=== PATIENT | female | born 1945 | race Caucasian/White ===

== ENCOUNTER → 2017-08-08 13:34 | Outpatient (CLI) | payer MEDICARE, OTHER, SELFPAY ==
--- NOTE | 2017-08-08 | DI.US.S_ITS ---
PROCEDURE: US ABDOMEN LIMITED INDICATIONS: RIGHT GROIN PAIN TECHNIQUE: Real-time focused scanning was performed of the abdomen, with image documentation. COMPARISON: None. FINDINGS: No right inguinal hernia or other right groin abnormality seen. IMPRESSION: No right inguinal hernia. Dictated by: Keaton MCGARRY Interpreted: Kareem Pinon MD on 08/08/2017 at 15:26 Approved by: Kareem Pinon M.D. on 08/08/2017 at 21:40
== END ==
PROVIDERS: Family Provider Family Medicine; PCP Family Medicine; Visit Provider Family Medicine
DX: R10.31 Right lower quadrant pain (principal)
CPT/HCPCS: 76705

== ENCOUNTER → 2018-08-03 16:19 | Outpatient (CLI) | payer MEDICARE, OTHER, SELFPAY ==
[2018-08-03 17:40] LABS: Appearance Urine UA CLEAR; Bilirubin Urine UA NEGATIVE (NEGATIVE); Color Urine UA YELLOW; Glucose Urine UA NEGATIVE (Negative); Ketones Urine UA NEGATIVE (NEGATIVE); Leukocyte Esterase Urine UA NEGATIVE (NEGATIVE); Nitrite Urine UA NEGATIVE (Negative); Occult Blood Urine UA 1+ (Negative); Protein Urine UA NEGATIVE (Negative); Specific Gravity Urine UA 1.025 (1.000-1.035); Urobilinogen Urine UA 0.2 E.U./dL (0.2)
[2018-08-03 17:52] LABS: Add Manual Diff / Slide Review NO; Basophils Absolute Auto 100 /uL (0-100); Basophils Percent Auto 1.3 % (0-2); Eosinophils Absolute Auto 100 /uL (0-450); Eosinophils Percent Auto 3.1 % (2-4); Hematocrit 36.4 % (36-46); Hemoglobin 12.3 g/dL (12.0-16.0); Lymphocytes Absolute Auto 600 /uL (1100-4500); Lymphocytes Percent Auto 13.6 % (25-40); Mean Corpuscular HGB Conc 33.9 % (30-36); Mean Corpuscular Hemoglobin 33.2 PG (26-34); Monocytes Absolute Auto 400 /uL (0-900); Neutrophils Absolute Auto 3400 /uL (1500-7000); Platelet Count 244 X10^3/uL (150-400); Red Blood Cell Count 3.71 X10^6/uL (4.0-5.2); Red Cell Distribution Width 13.2 % (11.6-14.8); White Blood Cell Count 4.6 X10^3/uL (4.5-11.0)
[2018-08-03 17:56] LABS: Hemoglobin A1C% w Est Avg Glu 5.2 % (4.0-6.0)
[2018-08-03 18:12] LABS: BUN Creatinine Ratio 22.9 (6-22); Blood Urea Nitrogen 16 mg/dL (7-17); Calcium 9.4 mg/dL (8.4-10.2); Carbon Dioxide 29 mmol/L (22-32); Chloride 104 mmol/L (98-107); Estimated Glomerular Filt Rate > 60.0 mL/min (>60); Glucose 92 mg/dL (80-110); HEMOLYSIS < 15 (0-50); Potassium 4.9 mmol/L (3.4-5.1); Sodium 140 mmol/L (137-145)
[2018-08-03 18:17] LABS: Amorphous Sediment Urine 1+; Bacteria Urine Few (2-10); Culture Indicated Urine Cult Not Indicated; Mucus Urine 1+ (Negative); RBC Urine 1-5/HPF (0-5/HPF); Squamous Epithelial Cell Urine 1-5 /HPF (0-5/HPF); WBC Urine 1-5/HPF (0-5/HPF)
== END ==
PROVIDERS: Family Provider Family Medicine; PCP Family Medicine; Visit Provider Orthopaedic Surgery
DX: Z01.818 Encounter for other preprocedural examination (principal); Z01.812 Encounter for preprocedural laboratory examination; N39.9 Disorder of urinary system, unspecified; Z13.1 Encounter for screening for diabetes mellitus; R73.9 Hyperglycemia, unspecified
CPT/HCPCS: 36415; 80048; 81001; 83036; 85025; 93005; 93010

== ENCOUNTER 2018-09-05 11:38 | Inpatient (IN) | payer MEDICARE, OTHER, SELFPAY ==
[2018-08-23 08:45] VITALS: BMI 25.9
[2018-09-05] VITALS (13 sets, daily range): BP systolic 105–144; BP diastolic 52–75; PULSE 51–82; RESP 12–18; TEMP 35.6–36.8; O2SAT 93–97; BMI 25.9
--- NOTE | 2018-09-05 | DI.RAD.S_ITS ---
PROCEDURE: XR HIP W PEL IF DONE RT 2V INDICATIONS: TOTAL RIGHT HIP TECHNIQUE: 2 view(s) of the hip acquired. COMPARISON: [facility], [place], XR HIP W PEL IF DONE RT 2V, 09/05/2018, 15:11. FINDINGS: Bones: Patient is status post right hip arthroplasty, with hardware components in expected positions. The hip joint appears congruent. The visualized bony structures appear intact. There has been a prior left hip arthroplasty which appears intact. Soft tissues: Overlying postoperative changes are noted. No suspicious soft tissue densities. IMPRESSION: Expected postoperative appearance of right hip arthroplasty. Intact left hip arthroplasty. Dictated by: Batsheva Villanueva M.D. on 09/05/2018 at 17:20 Approved by: Batsheva Villanueva M.D. on 09/05/2018 at 17:21
--- NOTE | 2018-09-05 07:38 | DI.RAD.S_ITS ---
PROCEDURE: XR HIP W PEL IF DONE RT 2V INDICATIONS: post op Right MORALES TECHNIQUE: AP pelvis with lateral view(s) of the right hip(s). COMPARISON: None. FINDINGS: Expected intraoperative alignment of right hip arthroplastic components. Overlying soft tissue changes. IMPRESSION: Expected intraoperative appearance Dictated by: Luís Webb M.D. on 09/05/2018 at 15:59 Approved by: Luís Webb M.D. on 09/05/2018 at 16:00
[2018-09-05] MEDS: VANCOMYCIN 1,000 MG/200 ML PIGGYBACK 200 MG IV (12:39)
[2018-09-05] MEDS: LACTATED RINGERS 1,000 ML 42 ML IV (12:39)
[2018-09-05] MEDS: PREGABALIN 75 MG CAPSULE PO (12:42)
[2018-09-05] MEDS: ACETAMINOPHEN 325 MG TABLET 975 MG PO ×2 (12:42→21:57)
[2018-09-05] MEDS: CELECOXIB 200 MG CAPSULE PO (12:42)
[2018-09-05] MEDS: CEFAZOLIN 2 GM/100 ML FROZ.PIGGY IV ×2 (13:52→22:01)
--- NOTE | 2018-09-05 13:54 | P.OP_ITS ---
Operative Date/Time/Diagnoses Date of procedure: 09/05/18 Time of procedure: 14:03 Pre-op diagnosis: Right hip osteoarthritis Post-op diagnosis: same Procedure & Clinicians Procedure: Right total hip arthroplasty Same procedure as scheduled: Yes Indications: The patient has had progressively worsening right hip pain with radiographic changes consistent with arthritis. Non-operative management has failed and the patient has requested total hip replacement. The risks, benefits and alternatives to surgery were discussed with the patient prior to proceeding. Risks discussed included, but were not limited to, failure to relieve pain, leg length discrepancy, dislocation, stiffness, infection, nerve damage, deep venous thrombosis, pulmonary embolism, stroke, coma, heart attack, permanent paralysis and , as well as the potential need for eventual revision of the prosthetic. Surgeon: Melba Lopes Electric Refrigerator Preparer: Will Baugh Anesthesia Type: General and Spinal Operative Notes Findings: Severe right hip osteoarthritis, good stability Closure Type: primary Specimen(s): none sent Prosthetic devices, grafts, tissues, transplants, or devices: Lopes and Nephew 50 R3 cup, neutral 50 x 32 liner, size 6 standard anthology stem, 32+ 0 Oxinium head Applied: drain(s) Estimated Blood Loss (mL): 250 Blood products transfused: none Procedure in detail: The patient was seen in the pre-operative area, where the patient identified the right hip as the operative site and this was marked with my initials. The patient received pre-operative antibiotics and was taken to the operating room and placed on the operative table in the left lateral decubitus position after satisfactory anesthesia. A time study statistician out was performed. The right leg was prepared from the ankle to the iliac crest with ChloroPrep in the usual fashion and draped through sterile drapes. The hip was approached through an approximately 20 cm incision centered over the greater trochanter and curving gently posteriorly as it went proximally. This was carried sharply to the fascia austin, which was divided and retracted with a self retaining retractor. The trochanteric bursa was excised with care being taken to avoid the sciatic nerve, which was identified and protected throughout the case. The short external rotators were incised and the capsulomuscular flap was raised and tagged for later repair. The hip was dislocated, and a femoral neck osteotomy performed approximately 15 mm above the lesser trochanter. Retractors were placed around the femur. The canal was opened with a box cutting osteotome, followed by a T handled reamer and a lateralizing reamer. The chili pepper broach was then used, followed by sequential broaching until there was good stability of the broach in the femur. Retractors were placed to expose the acetabulum. The labrum and central soft tissues were removed. Reaming was performed initially going up in 2 mm increments, then 1 mm increments until good bite was obtained with an odd sized reamer. The cup 1 mm larger than the last reamer was then inserted using the appropriate anteversion guides. A trial neutral liner was placed. The broach was placed in the canal. A trial head and neck were then placed and the hip relocated and checked for leg length and stability. An intraoperative film confirmed the component position and no evidence of fracture. The patient was stable in the position of sleep, of squatting, and could be put through a range of motion with 45 degrees internal rotation without dislocation. At 90 degrees flexion, internal rotation to 70 was possible before dislocation. This was felt to be satisfactory and the appropriate components were opened, and the trials were removed. The acetabular liner was impacted into position. The final stem was then impacted into the prepared femoral canal. A brief Betadine soak was performed while trialing with head options. The hip was meticulously irrigated with normal saline. Finally the femoral head was impacted onto the stem. The acetabulum was cleared of all material and the hip relocated one final time. The capsulomuscular flap was then repaired to the greater trochanter though an awl hole using the tag sutures. The short external rotators were repaired with a nonabsorbable suture. A deep drain was placed and brought out anteriorly. The fascia austin was closed with Vicryl. The subcutaneous layer was closed with barbed sutures and SteriStrips. An Aquacel Ag dressing was applied and the patient was taken to recovery having tolerated the procedure well. Complications: none Condition: stable Disposition: Acute Care Plan for aftercare: The patient will be maintained on a standard total hip replacement protocol with weight bearing as tolerated and posterior hip precautions. The patient will receive Aspirin and sequential compression devices for DVT prophylaxis. The patient will be discharged home when safe for the home environment.
[2018-09-05] MEDS: TRANEXAMIC ACID 1,000 MG VIAL 2000 MG INJ ×2 (14:20→16:02)
--- NOTE | 2018-09-05 14:42 | SUR.OPER ---
Lateral on padded OR bed. Gel axillary roll. Arms secured on padded armboard with pillow supporting top arm. Padded hip positioner braces x4 - anterior and posterior chest and pelvis. Additional gel pad used anterior pelvis. Gel pad under bottom leg from knee to foot and secured with tape over sheet.
[2018-09-05] MEDS: BUPIVACAINE LIPOSOME 266 MG/20 ML VIAL INJ (14:51)
[2018-09-05] MEDS: BUPIVACAINE 0.25% W/ EPI 30 ML VIAL 60 ML INJ (14:51)
[2018-09-05] MEDS: POVIDONE-IODINE 15 ML, SODIUM CHLORIDE 0.9% 250 ML TOP (14:54)
[2018-09-05] MEDS: SODIUM CHLORIDE IRRIG SOLUTION 250 ML, EPINEPHrine 1 MG IRR (14:55)
--- NOTE | 2018-09-05 16:09 | PM.PN.1 ---
Subjective Date Patient Seen: 09/05/18 Time Patient Seen: 13:09 Interval history: Preoperative history and physical reviewed in detail no interval change in history or physical continued ongoing significant right hip pain. Her previous left total hip arthroplasty is working well. Exam Vital Signs (past 8 hours): - 09/05/18 12:18 Temperature 97.3 F L Pulse Rate 64 Respiratory Rate 16 Blood Pressure 144/75 H Pulse Oximetry 97 Oxygen Delivery Method Room Air Narrative Exam Narrative: Physical exam performed an updated no interval change heart regular lungs are clear right hip has severe pain with range of motion. Assessment & Plan Assessment & Plan narrative: No interval change in history and physical okay to proceed with right total hip arthroplasty. Procedure reviewed with patient and anesthesia.
[2018-09-05] MEDS: ONDANSETRON 4 MG/2 ML INJ IV ×2 (18:40→22:41)
[2018-09-05] MEDS: LACTATED RINGERS 1,000 ML 125 ML IV (18:40)
[2018-09-05] MEDS: DOCUSATE 100 MG CAPSULE PO (21:57)
[2018-09-05] MEDS: ASPIRIN EC 81 MG TABLET PO (21:57)
[2018-09-05] MEDS: HYDROXYCHLOROQUINE 200 MG TABLET 100 MG PO (21:58)
[2018-09-06] VITALS (9 sets, daily range): BP systolic 102–125; BP diastolic 51–69; PULSE 51–75; RESP 16–18; TEMP 36.2–37; O2SAT 95–98
--- NOTE | 2018-09-06 00:57 | PC.NURSE ---
Addendum entered by Silvano Lugo R.N. 09/06/18 06:49: 0645: Pt states she is feeling some nausea. Medicated with Zofran 4mg IV. Current B/P 112/58. Addendum entered by Silvano Lugo R.N. 09/06/18 03:45: 0315: O2 sats 90% on room air. Placed on O2 2L/NC. Addendum entered by Silvano Lugo R.N. 09/06/18 03:21: 0300: Fluid bolus of 500cc NS started. Pt states she is feeling warmer. Current temperature is 97.5 (temporal). Addendum entered by Silvano Lugo R.N. 09/06/18 03:21: Addendum entered by Silvano Lugo R.N. 09/06/18 02:36: 0210: Call to Dr. White : notified of pts mental status, vital signs, and low temperature. New orders are to give NS fluid bolus of 500cc IV. Addendum entered by Silvano Lugo R.N. 09/06/18 01:18: 0107: Call to Dr. Jenkins regarding pts vital signs: inability to get temperature, HR of 51, B/P 102/52, and her history of having cardiac arrythmias after her 2007 surgery per H&P. New orders are to place pt on telemetry, use Pranay Hugger, and monitor vital signs Q2hrs. Original Note: Gum Machine Filler Note: 0045: Resting in bed, eyes closed. Opens eyes to sound. Alert and oriented X3. Pt states she feels cold. Warm blankets applied. She states her nausea is much better. HOB elevated 30 degrees per her comfort. IV in place in rt hand, with LR infusing at 125cc/hr. SCDs on. Dressing to rt hip cdi, with hemovac intact and compressed.
[2018-09-06] MEDS: SODIUM CHLORIDE 0.9% 500 ML 1000 ML IV (03:00)
[2018-09-06] MEDS: LACTATED RINGERS 1,000 ML 125 ML IV (03:17)
[2018-09-06 05:56] LABS: Hematocrit 29.7 % (36-46); Hemoglobin 10.1 g/dL (12.0-16.0)
[2018-09-06] MEDS: CEFAZOLIN 2 GM/100 ML FROZ.PIGGY IV (06:34)
[2018-09-06] MEDS: ONDANSETRON 4 MG/2 ML INJ IV (06:43)
[2018-09-06] MEDS: MELOXICAM 7.5 MG TABLET 15 MG PO (08:58)
[2018-09-06] MEDS: DOCUSATE 100 MG CAPSULE PO ×2 (08:58→20:27)
[2018-09-06] MEDS: LEVOTHYROXINE 50 MCG TABLET PO (08:58)
[2018-09-06] MEDS: ASPIRIN EC 81 MG TABLET PO ×2 (08:58→20:27)
[2018-09-06] MEDS: ACETAMINOPHEN 325 MG TABLET 975 MG PO ×3 (08:58→20:27)
[2018-09-06] MEDS: HYDROXYCHLOROQUINE 200 MG TABLET PO (08:59)
--- NOTE | 2018-09-06 09:37 | P.PN_ITS ---
Subjective Date Patient Seen: 09/06/18 Time Patient Seen: 09:35 Interval history: 73 year old female who is POD#1 s/p right total hip arthroplasty with Dr. Lopes. She experience some hypotension and bradycardia overnight accompanied by mental status change and lightheadedness. She was given a NS bolus and placed on telemetry with improvement of her vitals this morning and resolution of symptoms. She ambulated to commode prior to vital changes and has not ambulated again since. Pain is well controlled. She is tolerating food and has voided. Denies chest pain, shortness of breath. Exam Vital Signs (past 8 hours): - 09/06/18 02:00 09/06/18 04:54 09/06/18 06:00 Temperature 97.5 F L 98.6 F 97.4 F L Pulse Rate 52 L 66 61 Respiratory Rate 18 18 18 Blood Pressure 109/55 L 115/51 L 112/58 L Pulse Oximetry 95 96 97 09/06/18 08:30 Temperature 98.5 F Pulse Rate 66 Respiratory Rate 16 Blood Pressure 111/64 Pulse Oximetry 97 Oxygen Delivery Method Room Air Oxygen Flow Rate 1 Narrative Exam Narrative: Pleasant 73 year old female resting comfortably in bed, in no acute distress. Alert and oriented. Dressing in place over right hip is clean, dry, and intact. Active flexi on/extension of the ankle. Sensation intact to light touch. Palpable pedal pulse. Calves soft, compressible. Objective Labs Result Diagrams: 09/06/18 05:03 Labs: Laboratory Results - last 24 hr 09/06/18 05:03 Hgb 10.1 L Hct 29.7 L Assessment & Plan Post-op Postoperative Procedures Operation Date: 09/05/18 13:45 Actual Procedures Side Surgeon p Total Hip Arthroplasty Posterior Right Melba A MD Moses Patient appears to have stabilized after NDS bolus. Will continue to monitor today. Drain removed today. She should attempt physical therapy and continue pain control. Possible discharge this afternoon if she remains stable and is cleared by PT, otherwise will discharge to home tomorrow. Quality VTE Deep Vein Thrombosis/Pulmonary Embolism Present on Admission: No
--- NOTE | 2018-09-06 10:20 | CM.DANOTE ---
DCP: Case received, EMR reviewed and met with patient. Introduced self and role. Was able to obtain baseline health information from patient. DCP template assessment completed with information currently available. Patient is a 73 year old female who admitted yesterday morning to the care of the orthopedic team. PCP: Dr. Jiménez. Payer: confirmed: [email or web address]. Patient came to hospital for surgical procedure. She had R. total hip arthroplasty. Patient has had history of chronic right hip pain. Met with patient in her room. Pleasant. Alert and oriented. She resides in [place] with her spouse, Benito. She is active, works in her yard. She does have a walker. She has outpatient physical therapy set up at [facility]. She stated, she had some blood pressure issues early this morning when she used the bedside commode, her blood pressure had gotten low. She stated, today, she's feeling better. She will still be working with physical therapy team. P: DCP to continue to follow. She will be working with physical therapy, and will note how her blood pressures are doing. She should be able to go home when she is medically stable. Maria Guadalupe Ochoa RN/Project Manager Industrial
--- NOTE | 2018-09-06 10:40 | PT.IIE ---
Current Diagnoses Unilateral primary osteoarthritis, right hip (09/05/18) Surgery Performed Operation Date: 09/05/18 13:45 Actual Procedures p Total Hip Arthroplasty Posterior(Right) - Melba Lopes MD Surgical History (Last Updated 08/23/18 @ 09:12 by Janae Garcia, RN) History of total left hip arthroplasty (Acute 08/25/14) Hx of appendectomy (Acute) Hx of bilateral cataract extraction (Acute ~2016) Hx of hemorrhoidectomy (Acute) Status post colostomy takedown (Acute ~2007) Medical History (Last Updated 08/23/18 @ 09:12 by Janae Garcia, TOR) Arthritis (Acute) H/O: hysterectomy (Acute ~1973) HTN (hypertension) (Acute) Hypothyroidism (Acute) Osteoarthritis (Acute) Palpitations (Acute) Wide-complex tachycardia (Acute) Physical Therapy Inpatient Evaluation/Re-Eval M1 PT/OT-IP Prior Functional Status Start: 09/06/18 12:50 Freq: NEEDED Status: Active Protocol: Document 09/06/18 10:40 AB (Rec: 09/06/18 13:09 [id number]) Medical Review Prior Functional Status Medical History Reviewed Yes Communication able to make needs known Mobility and Gait pt stated that she was independent with all mobilities and ambulation without AD but has been using a FWW for ambulation for the last 3 weeks due to R hip pain Social History Household Members spouse Living Arrangements House Number of Floors (Floors) One Floor Number of Stairs To Enter/Railing? 2 steps to enter with 2 handles on door frame Home Environment High Toilet Walk in Shower Home Equipment Front Wheel Walker Straight Cane Raised Toilet Seat Without Armrests Shower Seat with Backrest Hand Held Shower Long Handled Shoe Horn Tank Pumper Panelboard Sock Aid Grab Bars In Shower Employment Status Retired M2 PT-IP Current Condition Start: 09/06/18 12:50 Freq: NEEDED Status: Active Protocol: Document 09/06/18 10:40 AB (Rec: 09/06/18 13:09 AB [id number]) Physical Therapy Current Condition Current Condition Evaluation Date 09/06/18 Treatment Diagnosis s/p R MORALES posterior approach; difficulty in walking Onset Date 09/05/18 Precautions Posterior Hip Precautions No Hip Flexion > 90 degrees No Hip Internal Rotation No Hip Adduction Weight Bearing Status Weight Bearing Status Weight Bear as Tolerated M3 PT-IP Subjective Start: 09/06/18 12:50 Freq: NEEDED Status: Active Protocol: Document 09/06/18 10:40 AB (Rec: 09/06/18 13:09 AB [id number]) Subjective Physical Therapy Visit Type Type Initial Evaluation Visit Start Time 10:40 Visit Stop Time 11:26 Total Visit Minutes 46 Number of IP ATTORNEY Visits 0 Physical Therapy Visit Comments Patient Comments pt agreeable to do PT Therapy Pain Assessment Pain When Pain Assessed At Rest Location r hip Intensity 3 Scale Used increases with mobility Pain Management Techniques Apply Cold Re-positioning Timing of Activity with Medications M4 PT-IP Mobility and Gait Start: 09/06/18 12:50 Freq: NEEDED Status: Active Protocol: Document 09/06/18 10:40 AB (Rec: 09/06/18 13:09 AB [id number]) PT-Bed Mobility Assessment Supine to Sit Supine to Sit Standby Assistance Scooting Scooting to Edge of Bed Standby Assistance PT-Transfer Assessment Sit to and From Stand Sit to and from Stand Minimal Assistance 1 Person Assistance Use of Upper Extremities Equipment Transfer Assistive Device Gait Belt Front Wheeled Walker Orthotic/Prosthetic Devices or Brace: No Transfers Transfer Destination Bed Transfer Technique pt ambulated using FWW Transfer Ability Level of Assist Minimal Assistance 1 Person Assistance Use of Upper Extremities Comments Mobility Comments RLE tends to interanally rotate at rest. has to educated and cue pt to correct RLE position to maintain hip precautions BP supine: 123/57 pt c/o slight dizziness upon sitting but dissipated after sitting on EOB for a few minutes. BP sittin/61 pt completed sit to stand min A and cues. BP checked in standin/65 BP at end of tx session sitting on chair: 112/56 Gait Assessment Gait Gait Assistance Required: Minimum Assistance Distance (Feet) 40 Able to Maintain Weight Bearing Status Yes During Gait Assistive Devices Assistive Device Gait Belt Front Wheeled Walker Orthotic/Prosthetic Devices or Brace: No Gait Deviations General Gait Pattern Antalgic Decreased Stride Length Decreased Feet Clearance Factors Limiting Gait Function Factors Limiting Gait Function Decreased Activity Tolerance Decreased Strength Limited Range of Motion Pain Poor Balance PT-Balance Assessment Sitting Balance and Reactions Static Sitting Balance Ability Good Dynamic Sitting Balance Ability Good Standing Balance and Reactions Static Standing Balance Ability Fair Dynamic Standing Balance Ability Fair Device Used FWW M5 PT-IP Objective Assessments Start: 09/06/18 12:50 Freq: NEEDED Status: Active Protocol: Document 09/06/18 10:40 AB (Rec: 09/06/18 13:09 AB [id number]) Orientation Orientation/Cognition Level of Alertness Alert Orientation Name Age Birthday Month Date Year Day of Week Place Situation Language Function Ability No Deficits Noted Safety Awareness Decreased Safety Awareness Memory Description Short Term Impaired Gross Range of Motion Lower Extremity ROM Assessment Within Functional Limits Strength Lower Extremity Strength Assessment Right Impaired Hip 3+/5 Knee 3+/5 Coordination Assessment Gross Coordination Gross Coordination WNL Sensation Assessment Sensation Gross Sensation WNL Muscle Tone Muscle Tone WNL Yes Other Assessments Other Other Assessments pt with (+) R genu valgum, (+) head tremors during standing and ambulation M6 PT-IP Treatment Start: 09/06/18 12:50 Freq: NEEDED Status: Active Protocol: Document 09/06/18 10:40 AB (Rec: 09/06/18 13:09 AB [id number]) Physical Therapy Treatment Exercises Exercises Quad Sets Heel Slides Education Education Provided Precautions Weight Bearing Status Post-Op Packet Safety M7 PT-IP Assessment and Plan Start: 09/06/18 12:50 Freq: NEEDED Status: Active Protocol: Document 09/06/18 10:40 AB (Rec: 09/06/18 13:09 AB [id number]) PT Summary Assessment and Plan Potential Rehabilitation Potential Good Status of Condition at Evaluation Stable Summary Impairments Pain ROM Strength Balance Coordination Bed Mobility Transfers Gait Activity Tolerance Assessment Summary pt requiring min A with mobility and plans to go home with spouse to assist her. caregiver training and stair training will be conducted prior to d/c and if able to safety complete, pt may go home when medically stable. Goals Bed Mobility Goal Independent Transfer Goal Independent Front Wheeled Walker Gait Goal Independent Front Wheel Walker Gait Distance 200 Other Goals up/down 2 steps using 2 handles/ SPC/INTELLIGENCE ENGINEER. Days to Meet Goals 5 Frequency of Treatment Frequency Of Treatment Twice a Day Treatment Plan Physical Therapy Treatment Plan Bed Mobility Training Transfer Training Gait Training Therapeutic Exercise Balance Retraining Post Op Education Discharge Planning Hot or Cold Pack Neuromuscular Re-ed Coordination Retraining Manual Therapy Other Recommendations and Next Treatment ambulation, caregiver training Focus , stair training Recommendations To Nursing Amount of Assist Needed 1 Person Assist Discharge Recommendations PT Discharge Recommendations Home with Assistance Outpatient PT
[2018-09-06] MEDS: ESTROGENS, CONJUGATED 0.3 MG TABLET PO (14:43)
--- NOTE | 2018-09-06 15:00 | PT.IPTN ---
Current Diagnoses Unilateral primary osteoarthritis, right hip (09/05/18) Surgery Performed Operation Date: 09/05/18 13:45 Actual Procedures p Total Hip Arthroplasty Posterior(Right) - Melba Lopes MD Physical Therapy Treatment Note M2 PT-IP Current Condition Start: 09/06/18 12:50 Freq: NEEDED Status: Active Protocol: Document 09/06/18 10:40 AB (Rec: 09/06/18 13:09 AB [id number]) Physical Therapy Current Condition Current Condition Evaluation Date 09/06/18 Treatment Diagnosis s/p R MORALES posterior approach; difficulty in walking Onset Date 09/05/18 Precautions Posterior Hip Precautions No Hip Flexion > 90 degrees No Hip Internal Rotation No Hip Adduction Weight Bearing Status Weight Bearing Status Weight Bear as Tolerated M3 PT-IP Subjective Start: 09/06/18 12:50 Freq: NEEDED Status: Active Protocol: Document 09/06/18 15:00 AB (Rec: 09/06/18 17:36 AB [id number]) Subjective Physical Therapy Visit Type Type Treatment Note Visit Start Time 15:00 Visit Stop Time 15:41 Total Visit Minutes 41 Number of NURSING CLINICAL DIRECTOR Visits 0 Physical Therapy Visit Comments Patient Comments pt agreeable to do PT Therapy Pain Assessment Pain When Pain Assessed At Rest Pain Present Pain Present Pain Reported Location r hip Intensity 5 Scale Used Numeric (1 - 10) Pain Management Techniques Apply Cold Re-positioning Timing of Activity with Medications M4 PT-IP Mobility and Gait Start: 09/06/18 12:50 Freq: NEEDED Status: Active Protocol: Document 09/06/18 15:00 AB (Rec: 09/06/18 17:36 AB [id number]) PT-Bed Mobility Assessment Supine to Sit Supine to Sit Standby Assistance Sit to Supine Sit to Supine Standby Assistance Scooting Scooting to Edge of Bed Standby Assistance PT-Transfer Assessment Sit to and From Stand Sit to and from Stand Contact Guard Assistance Equipment Transfer Assistive Device Gait Belt Front Wheeled Walker Orthotic/Prosthetic Devices or Brace: No Gait Assessment Gait Gait Assistance Required: Contact Guard Assist Distance (Feet) 100 Able to Maintain Weight Bearing Status Yes During Gait Assistive Devices Assistive Device Gait Belt Front Wheeled Walker Orthotic/Prosthetic Devices or Brace: No Gait Deviations General Gait Pattern Antalgic Decreased Stride Length Decreased Feet Clearance Factors Limiting Gait Function Factors Limiting Gait Function Decreased Activity Tolerance Decreased Strength Limited Range of Motion Pain Poor Balance Comments Gait Comments pt completed ambulation using FWW 100 + 75 ft Stair Climbing Assessment Evaluation Level of Assist On Stairs Contact Guard Assistance 1 Person Assistance Devices Stair Climbing Assistive Devices Left Railing Right Railing Technique/Endurance Stair Climbing Direction Ascend and Descend Stair Climbing Technique Step to Step Number of Steps Climbed 3 Stair Climbing Set # Repetitions (reps) 2 Comments Stair Climbing Comments attempted to simulate handle bars on pt's stair with pt reaching farther forward on stair rails on training steps. M5 PT-IP Objective Assessments Start: 09/06/18 12:50 Freq: NEEDED Status: Active Protocol: Document 09/06/18 10:40 AB (Rec: 09/06/18 13:09 AB [id number]) Orientation Orientation/Cognition Level of Alertness Alert Orientation Name Age Birthday Month Date Year Day of Week Place Situation Language Function Ability No Deficits Noted Safety Awareness Decreased Safety Awareness Memory Description Short Term Impaired Gross Range of Motion Lower Extremity ROM Assessment Within Functional Limits Strength Lower Extremity Strength Assessment Right Impaired Hip 3+/5 Knee 3+/5 Coordination Assessment Gross Coordination Gross Coordination WNL Sensation Assessment Sensation Gross Sensation WNL Muscle Tone Muscle Tone WNL Yes Other Assessments Other Other Assessments pt with (+) R genu valgum, (+) head tremors during standing and ambulation M6 PT-IP Treatment Start: 09/06/18 12:50 Freq: NEEDED Status: Active Protocol: Document 09/06/18 15:00 AB (Rec: 09/06/18 17:36 AB [id number]) Physical Therapy Treatment Education Education Provided Precautions Safety M7 PT-IP Assessment and Plan Start: 09/06/18 12:50 Freq: NEEDED Status: Active Protocol: Document 09/06/18 15:00 AB (Rec: 09/06/18 17:36 AB [id number]) PT Summary Assessment and Plan Potential Rehabilitation Potential Good Summary Impairments Pain ROM Strength Balance Coordination Sensation Tone Cognition Bed Mobility Transfers Gait Activity Tolerance Progress Towards Goals Slow Progress due to Activity Tolerance Assessment Summary pt progressing with mobility and requiring CGA with ambulation but requires cues for techniques and for hip precautions. pt plans to go home with spouse to assist her . Goals Bed Mobility Goal Independent Transfer Goal Independent Front Wheeled Walker Gait Goal Independent Front Wheel Walker Gait Distance 200 Other Goals up/down 2 steps using 2 handles/ SPC/KITCHEN AIDE. Days to Meet Goals 5 Frequency of Treatment Frequency Of Treatment Twice a Day Treatment Plan Physical Therapy Treatment Plan Bed Mobility Training Transfer Training Gait Training Therapeutic Exercise Balance Retraining Post Op Education Discharge Planning Hot or Cold Pack Neuromuscular Re-ed Coordination Retraining Manual Therapy Other Recommendations and Next Treatment ambulation, caregiver training Focus , stair training Recommendations To Nursing Amount of Assist Needed 1 Person Assist Discharge Recommendations PT Discharge Recommendations Home with Assistance Outpatient PT
[2018-09-06] MEDS: HYDROXYCHLOROQUINE 200 MG TABLET 100 MG PO (20:27)
[2018-09-07 00:20] VITALS: BP 119/65; PULSE 70; RESP 18; TEMP 36.7; O2SAT 96
--- NOTE | 2018-09-07 00:40 | PC.NURSE ---
Addendum entered by Diandra Cano R.N. 09/07/18 05:17: Complains of 5/10 pain lateral right thigh down to below knee as well as milder pain in right hip; medicated with Oxycodone and ice applied to both hip and knee. Original Note: Patient is alert and oriented. Breath sounds CTA with RA sat of 96%. HRR and was SR on most recent telemetry reading. Denies nausea. BT present and is passing flatus. Denies dysuria, frequency or urgency and is assisted to bathroom with 1 assist + walker; able to turn self in bed. Dressing to right hip and hemovac insertion site (drain out) both CDI. Does complain of 2/10 pain in hip and lateral right thigh but declines pain medication; ice pack applied. CMS is intact. SCD's applied at shift change. Fall risk score is moderate; calls for assistance appropriately.
[2018-09-07 02:56] VITALS: BP 128/64; PULSE 64; RESP 16; TEMP 36.6; O2SAT 97
[2018-09-07] MEDS: OXYCODONE IR 5 MG TABLET PO (05:12)
[2018-09-07 08:05] VITALS: BP 142/66; PULSE 62; RESP 18; TEMP 36.5; O2SAT 95
--- NOTE | 2018-09-07 08:11 | P.DS_ITS ---
History of Present Illness Date Patient Seen: 09/07/18 Time Patient Seen: 08:11 Chief complaint: [id number] RIGHT MORALES Narrative: The patient has had progressively worsening right hip pain with ra diographic changes consistent with arthritis. Non-operative management has failed and the patient has requested total hip replacement. The risks, benefits and alternatives to surgery were discussed with the patient prior to proceeding. Risks discussed included, but were not limited to, failure to relieve pain, leg length discrepancy, dislocation, stiffness, infection, nerve damage, deep venous thrombosis, pulmonary embolism, stroke, coma, heart attack, permanent paralysis and , as well as the potential need for eventual revision of the prosthetic. Discharge Providers Date of admission: 09/05/18 11:38 Discharge Date: 09/07/18 Primary care physician: Tone Jiménez MD Consults: 09/05/18 07:38 Consult to Anesthesiology Routine Comment: Consulting Provider: Anesthesiologist Reason for consultation: Regional block for post operative pain control 09/05/18 17:16 Consult to Discharge Planning Routine Comment: Consult to Physical Therapy Evaluate & Treat Comment: Physician Instructions: post op MORALES protocol Consult to Respiratory Therapy Evaluate & Treat Comment: Physician Instructions: Evaluate and treat Discharge provider: Luba Garcia PA-C Summary Discharge Diagnosis: s/p right total hip arthroplasty Thyroid disease Osteoporosis Hospital Course: Jose ibanez was admitted for right total hip arthroplasty with Dr. Lopes. Hospital course was remarkable for hypotensive episodes, nausea, and dizziness. H&H was 10.1/29.7, and did have post-operative blood loss anemia. Postop day 2. She was ready to discharge home. She has worked with physical therapy throughout her stay. She is eating and voiding without difficulty or assistance. ASA and SCDs for DVT prophylaxis. Status at Discharge Functional status at discharge: uses cane/walker Exam Vital Signs (past 8 hours): - 09/07/18 00:20 09/07/18 02:56 Temperature 98.1 F 97.8 F Pulse Rate 70 64 Respiratory Rate 18 16 Blood Pressure 119/65 128/64 Pulse Oximetry 96 97 Oxygen Delivery Method Room Air Oxygen Flow Rate 0 Narrative Exam Narrative: Patient is sitting at bedside chair no acute distress. She is alert and oriented x3. Calves are soft, compressible, nontender bilaterally. Sensation intact to light touch throughout extremities. Pain well controlled last night. BP issues resolved overnight. Objective Labs Result Diagrams: 09/06/18 05:03 Discharge Plan Discharge Plan Patient Disposition: Home Discharge Med Rec/Prescriptions Prescriptions: New acetaminophen 325 mg Tablet 975 mg PO TID Qty: 60 RF: 0 aspirin 81 mg Tablet,Delayed Release (Dr/Ec) 81 mg PO BID Qty: 60 RF: 0 meloxicam [Mobic] 7.5 mg Tablet 15 mg PO 0800 Qty: 1 RF: 0 docusate sodium [DOK] 100 mg Capsule 100 mg PO BID Qty: 60 RF: 0 oxycodone 5 mg Tablet 5 mg PO Q3HR PRN (Reason: Pain, Moderate (4-6)) Qty: 1 RF: 0 Continued hydroxychloroquine [Plaquenil] 200 MG tablet 300 mg PO SEEINSTR Qty: 0 RF: 0 amlodipine 5 mg Tablet 5 mg PO DAILY RF: 0 acetaminophen [Tylenol Extra Strength] 500 mg Tablet 500 mg PO Q6H PRN (Reason: Pain) RF: 0 levothyroxine 50 mcg Tablet 50 mcg PO DAILY RF: 0 Premarin 0.3 mg Tablet 0.3 mg PO DAILY RF: 0 Follow up/Referrals: Melba Lopes MD [Physician] - Provider Discharge Instructions Diet: Diet as Tolerated Activity: Weight bear as tolerated. Posterior hip precautions. Cold/Heat Therapy: Ice packs as needed. Skin/Wound/Dressing Care Report to your healthcare provider any signs of infection, such as:: chills, fever, night sweats, unusual drainage and unusual redness Dressing: Please leave dressing in place. Will be removed at 2 week post operative visit. Call the office if dressing becomes saturated. Visit Report/Discharge Packet Instructions: DI for Hip Replacement Discharge Data Primary Care Provider: Tone Jiménez Attending Provider: Melba Lopes Admit Date/Time: 09/05/18 11:38 Quality VTE Deep Vein Thrombosis/Pulmonary Embolism Present on Admission: No
[2018-09-07] MEDS: MELOXICAM 7.5 MG TABLET 15 MG PO (09:35)
[2018-09-07] MEDS: DOCUSATE 100 MG CAPSULE PO (09:35)
[2018-09-07] MEDS: LEVOTHYROXINE 50 MCG TABLET PO (09:35)
[2018-09-07] MEDS: HYDROXYCHLOROQUINE 200 MG TABLET PO (09:36)
[2018-09-07] MEDS: ESTROGENS, CONJUGATED 0.3 MG TABLET PO (09:36)
[2018-09-07] MEDS: ASPIRIN EC 81 MG TABLET PO (09:36)
[2018-09-07] MEDS: ACETAMINOPHEN 325 MG TABLET 975 MG PO (09:36)
[2018-09-07] MEDS: AMLODIPINE 5 MG TABLET PO (09:36)
--- NOTE | 2018-09-07 10:23 | CM.DPC ---
DCP: continued: Case received and discussed in Team Rounds. Pt has been ok'd to d/c home today by Amanda Shane. Has help from supportive spouse and OUTPT therapy set up. Will follow prn until pt leaves. She will likely have a therapy session today before home.
--- NOTE | 2018-09-07 10:25 | PT.IPTN ---
Current Diagnoses Unilateral primary osteoarthritis, right hip (09/05/18) Surgery Performed Operation Date: 09/05/18 13:45 Actual Procedures p Total Hip Arthroplasty Posterior(Right) - Melba Lopes MD Physical Therapy Treatment Note M2 PT-IP Current Condition Start: 09/06/18 12:50 Freq: NEEDED Status: Discharge Protocol: Document 09/06/18 10:40 AB (Rec: 09/06/18 13:09 AB [id number]) Physical Therapy Current Condition Current Condition Evaluation Date 09/06/18 Treatment Diagnosis s/p R MORALES posterior approach; difficulty in walking Onset Date 09/05/18 Precautions Posterior Hip Precautions No Hip Flexion > 90 degrees No Hip Internal Rotation No Hip Adduction Weight Bearing Status Weight Bearing Status Weight Bear as Tolerated M3 PT-IP Subjective Start: 09/06/18 12:50 Freq: NEEDED Status: Discharge Protocol: Document 09/07/18 10:25 GGD (Rec: 09/07/18 11:38 GGD [id number]) Subjective Physical Therapy Visit Type Type Treatment Note Visit Start Time 09:55 Visit Stop Time 10:25 Total Visit Minutes 30 Physical Therapy Visit Comments Patient Comments Pt want's to D/C home. Therapy Pain Assessment Pain When Pain Assessed At Rest Pain Present Pain Present Pain Reported Location Right Leg Intensity 3 Scale Used Numeric (1 - 10) M4 PT-IP Mobility and Gait Start: 09/06/18 12:50 Freq: NEEDED Status: Discharge Protocol: Document 09/07/18 10:25 GGD (Rec: 09/07/18 11:38 GGD [id number]) PT-Transfer Assessment Sit to and From Stand Sit to and from Stand Contact Guard Assistance Equipment Transfer Assistive Device Gait Belt Front Wheeled Walker Orthotic/Prosthetic Devices or Brace: No Transfers Transfer Destination Chair Transfer Ability Level of Assist Contact Guard Assistance 1 Person Assistance Use of Upper Extremities Gait Assessment Gait Gait Assistance Required: Contact Guard Assist Distance (Feet) 100 Able to Maintain Weight Bearing Status Yes During Gait Assistive Devices Assistive Device Gait Belt Front Wheeled Walker Orthotic/Prosthetic Devices or Brace: No Gait Deviations General Gait Pattern Antalgic Decreased Stride Length Decreased Feet Clearance Factors Limiting Gait Function Factors Limiting Gait Function Decreased Activity Tolerance Decreased Strength Limited Range of Motion Pain Poor Balance Stair Climbing Assessment Evaluation Level of Assist On Stairs Contact Guard Assistance 1 Person Assistance Devices Stair Climbing Assistive Devices Left Railing Right Railing Technique/Endurance Stair Climbing Direction Ascend and Descend Stair Climbing Technique Step to Step Number of Steps Climbed 3 Stair Climbing Set # Repetitions (reps) 1 M5 PT-IP Objective Assessments Start: 09/06/18 12:50 Freq: NEEDED Status: Discharge Protocol: Document 09/06/18 10:40 AB (Rec: 09/06/18 13:09 AB [id number]) Orientation Orientation/Cognition Level of Alertness Alert Orientation Name Age Birthday Month Date Year Day of Week Place Situation Language Function Ability No Deficits Noted Safety Awareness Decreased Safety Awareness Memory Description Short Term Impaired Gross Range of Motion Lower Extremity ROM Assessment Within Functional Limits Strength Lower Extremity Strength Assessment Right Impaired Hip 3+/5 Knee 3+/5 Coordination Assessment Gross Coordination Gross Coordination WNL Sensation Assessment Sensation Gross Sensation WNL Muscle Tone Muscle Tone WNL Yes Other Assessments Other Other Assessments pt with (+) R genu valgum, (+) head tremors during standing and ambulation M6 PT-IP Treatment Start: 09/06/18 12:50 Freq: NEEDED Status: Discharge Protocol: Document 09/07/18 10:25 GGD (Rec: 09/07/18 11:38 GGD [id number]) Physical Therapy Treatment Exercises Exercises Ankle Pumps Gluteal Sets Quad Sets Heel Slides Education Education Provided Precautions Safety M7 PT-IP Assessment and Plan Start: 09/06/18 12:50 Freq: NEEDED Status: Discharge Protocol: Document 09/07/18 10:25 GGD (Rec: 09/07/18 11:38 GGD [id number]) PT Summary Assessment and Plan Summary Assessment Summary Pt improving with mobility. She was safe and stable with stairs and gait. She had good understanding of hip precutions. Pt safe for home D /C when medically stable. Frequency of Treatment Frequency Of Treatment Twice a Day Treatment Plan Physical Therapy Treatment Plan Bed Mobility Training Transfer Training Gait Training Therapeutic Exercise Balance Retraining Post Op Education Discharge Planning Hot or Cold Pack Neuromuscular Re-ed Coordination Retraining Manual Therapy Discharge Recommendations PT Discharge Recommendations Home with Assistance Outpatient PT
--- NOTE | 2018-09-07 10:51 | PC.NURSE ---
DISCHARGE: PATIENT CLEARED FOR DC HOME BY PHYSICAL THERAPY. PATIENT GIVES VERBAL UNDERSTANDING OF ALL DC HOME PAPERWORK. HAS SCRIPTS FILLED ALREADY AT HOME. NOHELIA CDI. SPOUSE PRESENT FOR DC PAPERWORK. IV DC'D INTACT. PATIENT LEFT WITH ALL BELONGINGS IN NO S/SX'S OF DISTRESS W/ CCTV TECHNICIAN ESCORT BY WC.
== END 2018-09-07 10:53 | disposition home or self-care (01) | DRG 470 ==
PROVIDERS: Admitting Provider Orthopaedic Surgery; PCP Family Medicine; Visit Provider Orthopaedic Surgery
PROC: 0SR90JZ Replacement of Right Hip Joint with Synthetic Substitute, Open Approach (ICD-10-PCS; CPT 27130; principal; 2018-09-05 13:45)
DX: M16.11 Unilateral primary osteoarthritis, right hip (principal); M06.9 Rheumatoid arthritis, unspecified; Z96.642 Presence of left artificial hip joint; E03.9 Hypothyroidism, unspecified; I95.9 Hypotension, unspecified; R42 Dizziness and giddiness; R11.0 Nausea
CPT/HCPCS: 36415; 73502; 85014; 85018; 97116; 97161; 97530; C1776; C9290; J0171; J0690; J1100; J2250; J2274; J2405; J3010

== ENCOUNTER → 2018-10-22 13:06 | Outpatient (CLI) | payer MEDICARE, OTHER, SELFPAY ==
[2018-09-05 12:05] VITALS: BMI 25.9
--- NOTE | 2018-10-22 | DI.MG.S_ITS ---
BILATERAL DIGITAL SCREENING MAMMOGRAM 3D/2D WITH CAD: 10/22/2018 CLINICAL: Routine screening. Comparison is made to exams dated: 10/03/2013 mammogram, 09/28/2012 mammogram, 09/26/2011 mammogram, and 09/23/2010 mammogram - [facility]. There are scattered fibroglandular elements in both breasts. Current study was also evaluated with a Computer Aided Detection (CAD) system. No significant masses, calcifications, or other findings are seen in either breast. There has been no significant interval change. IMPRESSION: NEGATIVE There is no mammographic evidence of malignancy. A 1 year screening mammogram is recommended. This exam was interpreted at Station ID: [id number]. NOTE: For mammograms, a report in lay terms will be sent to the patient. Approximately 15% of breast malignancies will not be visualized mammographically. In the management of a palpable breast mass, a negative mammogram must not discourage biopsy of a clinically suspicious lesion. Electronically Signed By: Sarath brown/tahir:10/22/2018 18:46:01 letter sent: Normal Exam ACR BI-RADS Category 1: Negative [id number]
== END ==
PROVIDERS: PCP Student in an Organized Health Care Education/Training Program; Visit Provider Student in an Organized Health Care Education/Training Program
DX: Z12.31 Encounter for screening mammogram for malignant neoplasm of breast (principal); M85.88 Other specified disorders of bone density and structure, other site; M85.832 Other specified disorders of bone density and structure, left forearm; Z78.0 Asymptomatic menopausal state; M06.9 Rheumatoid arthritis, unspecified; Z90.722 Acquired absence of ovaries, bilateral
CPT/HCPCS: 77063; 77067; 77080

== ENCOUNTER → 2020-12-25 14:56 | Outpatient (CLI) | payer MEDICARE, OTHER, SELFPAY ==
[2018-09-05 12:05] VITALS: BMI 25.9
--- NOTE | 2020-12-25 | DI.MG.S_ITS ---
BILATERAL DIGITAL SCREENING MAMMOGRAM 3D/2D WITH CAD: 12/25/2020 CLINICAL: Routine screening. Comparison is made to exams dated: 10/22/2018 mammogram, 10/03/2013 mammogram, and 09/28/2012 mammogram - [facility]. There are scattered fibroglandular elements in both breasts. Current study was also evaluated with a Computer Aided Detection (CAD) system. No significant masses, calcifications, or other findings are seen in either breast. There has been no significant interval change. IMPRESSION: NEGATIVE There is no mammographic evidence of malignancy. A 1 year screening mammogram is recommended. This exam was interpreted at Station ID: [id number]. NOTE: For mammograms, a report in lay terms will be sent to the patient. Approximately 15% of breast malignancies will not be visualized mammographically. In the management of a palpable breast mass, a negative mammogram must not discourage biopsy of a clinically suspicious lesion. Electronically Signed By: Juan Ac M.D., jr/tahir:12/25/2020 16:18:39 letter sent: Normal Exam ACR BI-RADS Category 1: Negative [id number]
== END ==
PROVIDERS: PCP Student in an Organized Health Care Education/Training Program; Referring Provider Student in an Organized Health Care Education/Training Program; Visit Provider Student in an Organized Health Care Education/Training Program
DX: Z12.31 Encounter for screening mammogram for malignant neoplasm of breast (principal)
CPT/HCPCS: 77063; 77067

== ENCOUNTER → 2021-12-29 10:34 | Outpatient (CLI) | payer MEDICARE, OTHER, SELFPAY ==
[2018-09-05 12:05] VITALS: BMI 25.9
--- NOTE | 2021-12-29 | DI.RAD.S_ITS ---
PROCEDURE: XR DEXA AXIAL SKELETON INDICATIONS: Other specified disorders of bone density COMPARISON: [facility], [place], XR DEXA AXIAL SKELETON, 10/22/2018, 13:37. FINDINGS: This blank DEXA report has been sent in error by the PACS system. The correct and complete report will be forthcoming in 1-2 days. Thank you for your patience and understanding. Dictated by: Juan Ac M.D. on 12/29/2021 at 15:01 Approved by: Juan Ac M.D. on 12/29/2021 at 15:01
== END ==
PROVIDERS: PCP Family Medicine; Referring Provider Family Medicine; Visit Provider Family Medicine
DX: Z13.820 Encounter for screening for osteoporosis; M81.0 Age-related osteoporosis without current pathological fracture; Z78.0 Asymptomatic menopausal state; Z79.890 Hormone replacement therapy; Z90.710 Acquired absence of both cervix and uterus; Z79.83 Long term (current) use of bisphosphonates
CPT/HCPCS: 77080; 77081

== ENCOUNTER → 2022-01-01 08:53 | Outpatient (CLI) | payer MEDICARE, OTHER, SELFPAY ==
[2018-09-05 12:05] VITALS: BMI 25.9
--- NOTE | 2022-01-01 | DI.MG.S_ITS ---
BILATERAL DIGITAL SCREENING MAMMOGRAM 3D/2D WITH CAD: 01/01/2022 CLINICAL: Routine screening. Comparison is made to exams dated: 12/25/2020 mammogram, 10/22/2018 mammogram, and 10/03/2013 mammogram - [facility]. There are scattered areas of fibroglandular density in both breasts (category b / 25%-50% glandular tissue). Current study was also evaluated with a Computer Aided Detection (CAD) system. No significant masses, calcifications, or other findings are seen in either breast. There has been no significant interval change. IMPRESSION: NEGATIVE There is no mammographic evidence of malignancy. A 1 year screening mammogram is recommended. Based on the Tyrer Cuzick model (a risk assessment model) the patient's lifetime risk is 1.4% and her 10 year risk is 0.0%. According to the ACR, ACS, and NCCN guidelines, an annual breast MRI exam along with mammogram is recommended if the patient's lifetime risk is 20% or greater. This exam was interpreted at Station ID: [id number]. NOTE: For mammograms, a report in lay terms will be sent to the patient. Approximately 15% of breast malignancies will not be visualized mammographically. In the management of a palpable breast mass, a negative mammogram must not discourage biopsy of a clinically suspicious lesion. Electronically Signed By: Sajan correa/tahir:01/01/2022 10:13:53 letter sent: Normal Exam ACR BI-RADS Category 1: Negative [id number]
== END ==
PROVIDERS: PCP Family Medicine; Referring Provider Family Medicine; Visit Provider Family Medicine
DX: Z12.31 Encounter for screening mammogram for malignant neoplasm of breast (principal)
CPT/HCPCS: 77063; 77067

== ENCOUNTER → 2024-08-12 09:52 | Outpatient (CLI) | payer MEDICARE, OTHER, SELFPAY ==
[2018-09-05 12:05] VITALS: BMI 25.9
--- NOTE | 2024-08-12 09:56 | DI.RAD.S_ITS ---
PROCEDURE: XR DEXA AXIAL SKELETON INDICATIONS: OSTEOPOROSIS COMPARISON: [facility], , XR DEXA AXIAL SKELETON, 12/29/2021, 11:15. FINDINGS: Lumbar Spine: L2-L3. Bone mineral density 0.761 g/cm2, T score -2.7. Left Forearm: Bone mineral density 0.644 g/cm2, T score -0.8, not significantly changed. (T score greater or equal to -1.0 to: NORMAL) (T score from -1.1 to -2.4: OSTEOPENIA) (T score less than or equal to -2.5: OSTEOPOROSIS) IMPRESSION: Osteoporosis. Follow-up guidelines as follows: Osteoporosis: Consider a repeat DEXA and Vertebral Fracture Assessment (VFA) exam in 2 years or sooner if medically necessary, to reassess this patient's status. Osteopenia: Consider a repeat DEXA in 2-3 years to reassess this patient's status, or if there is a new clinical indication. Normal: Consider a repeat DEXA in 5 years or sooner, or if there is a new clinical indication. All treatment decisions require clinical judgment and consideration of individual patient factors, including patient preferences, comorbidities, previous drug use, risk factors not captured in the FRAX model (e.g., frailty, falls, vitamin D deficiency, increased bone turnover, interval significant decline in bone density ) and possible under- or over-estimation of fracture risk by FRAX. In addition, the NOF Guide recommends that FDA-approved medical therapies be considered in postmenopausal women and men age >= 50 years with a: * Hip or vertebral (clinical or morphometric) fracture * T-score of <=-2.5 at the spine or hip * Ten-year fracture probability by FRAX of >= 3% for hip fracture or >=20% for major osteoporotic fracture. Dictated by: Temo Urbina M.D. on 08/12/2024 at 14:53 Approved by: Temo Urbina M.D. on 08/12/2024 at 14:54
== END ==
PROVIDERS: PCP Family Medicine; Referring Provider Family Medicine; Visit Provider Family Medicine
DX: Z78.0 Asymptomatic menopausal state (principal); Z13.820 Encounter for screening for osteoporosis; M81.0 Age-related osteoporosis without current pathological fracture
CPT/HCPCS: 77080; 77081